=== PATIENT | male | born 1985 | race Caucasian/White ===

== ENCOUNTER 2020-10-14 11:47 | Emergency (ER) | payer MEDICAID ==
--- NOTE | 2020-10-14 12:15 | EDM.PDOC ---
ED HPI GENERAL MEDICAL PROBLEM - General Stated Complaint: RT HAND MIDDLE FINGER PAIN Time Seen by Provider: 10/14/20 12:14 Source of Information: Reports: Patient History Limitations: Reports: No Limitations - History of Present Illness INITIAL COMMENTS - FREE TEXT/NARRATIVE: 35-year-old male with warts on the dorsal aspect of the PIP of his right middle finger for 6 months or more. He was seen by a applications processor in [place] june and reports that he had the warts burned off" with liquid nitrogen and they have come back. He reports that he has pulled them off many times and they still come back. He awoke this morning increased pain in his right middle finger and came here for evaluation. He also has a wart on the palm of his left hand. He rates the pain as a 7/10. It is sharp and stinging and it is worse with movement of his finger. There is no redness. There has been no fever. No increased warmth in the area. There are no other associated signs or symptoms. There are no other modifying factors. Onset: Other (6+ months ago reports worsening pain today.) Duration: Constant (6+ months ago.) Location: Reports: Upper Extremity, Left (Left palm), Upper Extremity, Right (Right middle finger) Quality: Reports: Sharp (And stinging) Severity: Moderate Improves with: Reports: None Worsens with: Reports: Other (Palpation), Movement Context: Reports: Other (As above.) Associated Symptoms: Reports: No Other Symptoms Treatments TRAPEZE PERFORMER: Reports: Other (see below) (Nothing.) Right Finger-Middle Pain Score (Numeric/FACES): 7 - Related Data Allergies Allergy/AdvReac Type Severity Reaction Status Date / Time No Known Allergies Allergy Verified 10/14/20 12:30 Home Meds: Home Meds ARIPiprazole [Abilify] 30 mg .ROUTE DAILY 10/14/20 [History] Past Medical History Psychiatric History: Reports: Schizophrenia - Past Surgical History Other Surgical History Comment: None. Social & Family History - Tobacco Use Tobacco Use Status *Q: Current Every Day Tobacco User - Alcohol Use Alcohol Use History: No - Living Situation & Occupation Occupation: Employed (Works construction) ED ROS GENERAL - Review of Systems Review Of Systems: See Below Constitutional: Denies: Fever, Chills HEENT: Reports: Other (No nasal congestion) Respiratory: Denies: Shortness of Breath, Cough Cardiovascular: Denies: Chest Pain, Edema Endocrine: Denies: Polydypsia, Polyuria GI/Abdominal: Denies: Abdominal Pain, Nausea : Denies: Dysuria, Pain Musculoskeletal: Denies: Neck Pain, Back Pain Skin: Reports: Other (Warts on hands.). Denies: Rash Neurological: Denies: Confusion, Dizziness Hematologic/Lymphatic: Denies: Easy Bleeding, Easy Bruising ED EXAM, GENERAL - Physical Exam Exam: See Below General Appearance: Alert, WD/WN, No Apparent Distress Eye Exam: Bilateral Eye: EOMI, Normal Inspection, PERRL Ears: Normal External Exam, Hearing Grossly Normal Ear Exam: Bilateral Ear: Auricle Normal Nose: Normal Inspection, Normal Mucosa, No Blood Throat/Mouth: Normal Inspection, Normal Oropharynx, Normal Voice, No Airway Compromise Head: Atraumatic, Normocephalic Neck: Normal Inspection, Supple, Non-Tender, Full Range of Motion Respiratory/Chest: No Respiratory Distress, Lungs Clear, Normal Breath Sounds, No Accessory Muscle Use, Chest Non-Tender Cardiovascular: Normal Peripheral Pulses, Regular Rate, Rhythm, No Edema, No JVD, No Murmur Peripheral Pulses: 2+: Radial (L), Radial (R) GI/Abdominal: Normal Bowel Sounds, Soft, Non-Tender, No Organomegaly Back Exam: Normal Inspection, Full Range of Motion Extremities: Normal Range of Motion, Non-Tender, No Pedal Edema, Normal Capillary Refill, Other (2 warts on the dorsal aspect of the right middle finger at the PIP. There is no erythema here and no fluctuance. There is also a wart on the left palm at the first interspace. There is also no erythema or fluctuance noted.) Psychiatric: Normal Affect Skin Exam: Warm, Dry, Intact, Normal Color, Other (As above with warts.) Course - Vital Signs Last Recorded V/S: Last Vital Signs Temp 36.8 C 10/14/20 12:11 Pulse 95 10/14/20 12:11 Resp 20 10/14/20 12:11 BP 144/99 H 10/14/20 12:11 Pulse Ox 99 10/14/20 12:11 - Re-Assessments/Exams Free Text/Narrative Re-Assessment/Exam: 10/14/20 12:30: Patient with warts on both hands. He had seen a applications processor for this in [place] in June and had them frozen off with liquid nitrogen but the ones as have come back and he has a new one on his left palm. We do not have liquid nitrogen here (we did have it in the walk-in clinic but they no longer have an) and he would need to see a applications processor in regard to these for definitive management. I discussed this with patient and have advised him to follow-up with that applications processor as soon as he can arrange. Departure - Departure Time of Disposition: 12:35 Disposition: Home, Self-Care 01 Clinical Impression: Warts Qualifiers: Viral wart type: unspecified viral wart Qualified Code(s): B07.9 - Viral wart, unspecified - Discharge Information Instructions: Warts, [id number] Referrals: PCP,None [Primary Care Provider] - Forms: ED Department Discharge Additional Instructions: We do not have liquid nitrogen or any other means to "burn" the warts off. You would need to see the applications processor that you saw back in June as he would be the one to be able to definitively manage your warts. Sepsis Event Note (ED) - Focused Exam Vital Signs: Vital Signs Temp Pulse Resp BP Pulse Ox 10/14/20 12:11 36.8 C 95 20 144/99 H 99
== END 2020-10-14 12:40 | disposition home or self-care (01) ==
LOC: FB.ED 11:47
DX: B07.9 Viral wart, unspecified (principal); Z72.0 Tobacco use
CPT/HCPCS: 99282

== ENCOUNTER 2024-03-20 11:19 | Emergency (ER) | payer MEDICAID, OTHER | END 2024-03-20 11:30 | LOC: FB.ED 11:19 | DX: Z02.89 Encounter for other administrative examinations (principal); Z79.899 Other long term (current) drug therapy | CPT/HCPCS: 99283 ==